=== PATIENT | female | born 1990 | race Hispanic/Latino ===

== ENCOUNTER 2018-12-08 12:15 | Outpatient (CLI) | payer BC, MEDICAID | END 2018-12-08 15:07 | disposition home or self-care (01) | LOC: TRG 12:15 | CPT/HCPCS: 59025 ==

== ENCOUNTER 2018-12-17 14:06 | Outpatient (CLI) | payer BC, MEDICAID ==
[2018-12-17 14:35] VITALS: BP 114/73
--- NOTE | 2018-12-18 07:46 | Ultrasound Report ---
BIOPHYSICAL PROFILE: INDICATION: well being. COMPARISON: None similar. TECHNIQUE: Transabdominal ultrasound with Doppler interrogation. 2 - breathing movements 2 - movements 2 - posture and tone 2 - Qualitative amniotic fluid volume 8 - TOTAL SCORE OF POSSIBLE 8 Heart Rate (bpm) 152 CONCLUSION: Findings, as above.
--- NOTE | 2018-12-18 07:47 | Ultrasound Report ---
OB LIMITED INDICATION: well being. COMPARISON: None similar at this institution. TECHNIQUE: Transabdominal grayscale ultrasound with Doppler interrogation. Gestation: [place] Position: Cephalic Amniotic Fluid: WNL (7-24 cm) KAYLA = 10 cm Heart Rate: 123 BPM CONCLUSION: Findings, as above.
== END 2018-12-17 18:03 | disposition home or self-care (01) ==
LOC: TRG 14:06
PROVIDERS: ATTEND Obstetrics & Gynecology
DX: O47.1 False labor at or after 37 completed weeks of gestation (principal); Z3A.41 41 weeks gestation of pregnancy
CPT/HCPCS: 76815; 76819

== ENCOUNTER 2018-12-21 11:03 | Outpatient (CLI) | payer BC, MEDICAID ==
[2018-12-21 11:55] VITALS: BP 116/79
--- NOTE | 2018-12-21 16:50 | Ultrasound Report ---
PROCEDURE: Ultrasound biophysical profile without nonstress test. TECHNIQUE: Sonographic evaluation for breathing, movement, tone, and amniotic flui d volume was performed. HISTORY: Postdates, evaluate well being . COMPARISONS: None. FINDINGS: FETUS Amniotic fluid volume 2. breathin. movement: 2. tone: 2. Score: 8 of 8. IMPRESSION: Normal biophysical profile. This document is electronically signed by Jorge Blum MD., December 21 2018 04:48:11 PM ET
--- NOTE | 2018-12-21 16:53 | Ultrasound Report ---
PROCEDURE: Limited obstetrical ultrasound. TECHNIQUE: Real-time limited sonographic examination was performed for evaluation of each fetus with image documentation (1 or more fetuses). HISTORY: Post due date, evaluate well being . COMPARISONS: Limited obstetrical ultrasound 12/17/2018. Dictation not available. FINDINGS: There is a single viable fetus in cephalic presentation. Cardiac activity is documented at 156 bpm. T he amniotic fluid volume appears normal. The amniotic fluid index measures 12.3 cm. IMPRESSION: Single viable fetus in cephalic presentation. Normal amniotic fluid index. This document is electronically signed by Jorge Blum MD., December 21 2018 04:51:13 PM ET
== END 2018-12-21 16:19 | disposition home or self-care (01) ==
LOC: TRG 11:03 → LD 11:48 → TRG 16:19
PROVIDERS: ATTEND Obstetrics & Gynecology
DX: O47.1 False labor at or after 37 completed weeks of gestation (principal); Z3A.41 41 weeks gestation of pregnancy
CPT/HCPCS: 76815; 76819

== ENCOUNTER 2018-12-22 16:11 | Inpatient (IN) | payer BC, MEDICAID ==
[2018-12-22] MEDS ORDERED: LACTATED RINGERS 1,000 ML ONE (18:51)
[2018-12-22] MEDS ORDERED: STADOL ONE (18:52)
[2018-12-22] MEDS ORDERED: STADOL IV PRN (18:53)
[2018-12-22] MEDS ORDERED: PHENERGAN PO PRN (18:53)
[2018-12-22] MEDS ORDERED: ZOFRAN IV PRN (18:53)
[2018-12-22] MEDS ORDERED: BRETHINE SUB-Q PRN (18:53)
[2018-12-22] MEDS ORDERED: BRETHINE IVP PRN (18:53)
[2018-12-22] MEDS ORDERED: SUBLIMAZE IV PRN (18:53)
[2018-12-22] MEDS ORDERED: XYLOCAINE 2% INFILTRATI ONE (18:53)
[2018-12-22] MEDS ORDERED: MINERAL OIL PO PRN (18:53)
[2018-12-22] MEDS ORDERED: LACTATED RINGERS 1,000 ML IV SCH (19:00)
[2018-12-22] MEDS ORDERED: PITOCin/NS 30 UNIT/500ML 30 UNITS/500 ML BAG IV SCH ×2 (19:00)
[2018-12-22] MEDS ORDERED: PITOCin/NS 20 UNIT/1000ML DRIP 20 UNITS/1,000 ML BAG IV SCH (19:00)
--- NOTE | 2018-12-22 19:00 | History and Physical Report ---
History of Present Illness Date of examination: 12/22/18 Date of admission: 12/22/18 16:12 Chief complaint: Labor History of present illness: Pt is a 27yo WF EDC 12/13/18; EGA 41 2/7 weeks presents to L&D complaining of RUC's q 3-5 mins. She received late care at [facility] since 27 weeks and course has been unremarkable. records are available and GBS is Negative. Past History Past Medical History: no pertinent history Past Surgical History: other (Cosmetic and Abdominal surgery) Family/Genetic History: hypertension Social history: no significant social history, single - Obstetrical History Expected Date of Delivery: 12/13/18 Actual Gestation: 41 Week(s) 2 Day(s) : 1 Medications and Allergies Allergies Allergy/AdvReac Type Severity Reaction Status Date / Time No Known Allergies Allergy Verified 12/21/18 11:54 Home Medications Medication Instructions Recorded Confirmed Last Taken Type Pnv No.95/Ferrous Fum/Folic AC 1 tab PO DAILY 12/22/18 12/22/18 12/22/18 History [ Formula Tablet] Review of Systems All systems: negative - Vital Signs Vital signs: Vital Signs Pulse Pulse Ox 76 98 12/22/18 16:55 12/22/18 16:55 Temp Pulse Resp BP Pulse Ox 73 125/81 97 12/22/18 17:30 12/22/18 17:20 12/22/18 17:30 - Physical Exam Breasts: Positive: deferred Cardiovascular: Regular rate Lungs: Positive: Clear to auscultation Abdomen: Positive: normal appearance Genitourinary (Female): Positive: normal external genitalia Vagina: Positive: normal moisture Uterus: Positive: enlarged Extremities: Positive: normal - Obstetrical FHR: category 1 Uterine Contraction Monitor Mode: External Cervical Dilatation: 3.5 (per nurse) Cervical Effacement Percentage: 70 (per nurse) station: -2 Results Result Diagrams: 12/22/18 18:32 All other labs normal. Assessment and Plan - Patient Problems (1) 41 weeks gestation of Onset Date: 12/22/18 Current Visit: Yes Status: Acute Plan to address problem: A: IUP @ 41 2/7 weeks in labor P: Admit to L&D for expectant vaginal delivery
[2018-12-22 19:20] LABS: Hematocrit 39.4 % (30.3-42.9); Mean Corpuscular HGB Conc 36 % (30-34); Mean Corpuscular Volume 95 fl (79-97); Platelet Count 159 K/mm3 (140-440); Red Blood Count 4.17 M/mm3 (3.65-5.03); Red Cell Distribution Width 13.6 % (13.2-15.2)
[2018-12-22] MEDS ORDERED: NARCAN 2 MG/2 ML IV PRN (21:03)
[2018-12-22] MEDS ORDERED: fentaNYL-BUPIV 2 MCG/ML-0.125% 200 MCG/100 ML BAG EPIDURAL SCH (22:00)
[2018-12-23] MEDS ORDERED: MARCAINE 0.25% INFILTRATI ONE (04:10)
--- NOTE | 2018-12-23 06:09 | Procedure Note ---
OB Delivery Note - Delivery Date of Delivery: 12/23/18 Surgeon: JACQUELYN SQUIRES Estimated blood loss: other (400ml) - Vaginal Delivery presentation: vertex Delivery position: OP Intrapartum events: PROM->1hr before delivery Delivery induction: oxytocin Delivery augmentation: rupture of membranes, pitocin Delivery monitor: external FHT, external uterine Route of delivery: vacuum extraction Indicators for instrumentation: maternal exhaustion Delivery placenta: spontaneous Delivery cord: 3 umbilical vessels Episiotomy: midline Delivery laceration: 2nd degree (perineal) Delivery repair: vicryl Anesthesia: epidural Delivery comments: Infant delivered OP with the aid of a vacuum - 2 pulls, 1 pop-off, and added to awaiting peds/RT after [id number] bonding and delayed cord clamping, cut by Dad - A at 1 minute: 8 at 5 minutes: 9 Infant Gender: Female (3677gms)
[2018-12-23] MEDS ORDERED: LANSINOH TP PRN (06:10)
[2018-12-23] MEDS ORDERED: MILK OF MAGNESIA PO PRN (06:10)
[2018-12-23] MEDS ORDERED: BENADRYL PO PRN (06:10)
[2018-12-23] MEDS ORDERED: PHENERGAN PO PRN (06:10)
[2018-12-23] MEDS ORDERED: TUCKS PAD TP PRN (06:10)
[2018-12-23] MEDS ORDERED: PHENERGAN PR PRN (06:10)
[2018-12-23] MEDS ORDERED: DULCOLAX PR PRN (06:10)
[2018-12-23] MEDS ORDERED: ZOFRAN IV PRN (06:10)
[2018-12-23] MEDS ORDERED: TYLENOL PO PRN (06:10)
[2018-12-23] MEDS ORDERED: PITOCin/NS 20 UNIT/1000ML DRIP 20 UNITS/1,000 ML BAG IV SCH (07:00)
[2018-12-23] MEDS ORDERED: SODIUM CHLORIDE FLUSH SYRINGE 10 ML IV PRN (07:00)
--- NOTE | 2018-12-23 07:21 | Post Anesthesia Evaluation ---
- Post Anesthesia Evaluation Patient Participated: Yes Airway Patent: Yes Stable Respiratory Function: Yes Nausea/Vomiting: No Temp > 96.8F: Yes Pain Manageable: Yes Adequeate Hydration: Yes Anesthesia Complications: No Block Receding Appropriately: Yes Patient on Ventilator: No
[2018-12-23] MEDS: IBUPROFEN PO SCH ×2 (08:45→16:36)
[2018-12-23] MEDS: NORCO 5/325 PO PRN ×2 (09:35→22:00)
[2018-12-23] MEDS: PRENATAL VITAMIN PO SCH (16:36)
[2018-12-23] MEDS: FEOSOL PO SCH ×2 (16:36→22:00)
[2018-12-23] MEDS: COLACE PO SCH ×2 (16:36→22:00)
[2018-12-23 17:37] LABS: Hematocrit 29.7 % (30.3-42.9); Hemoglobin 10.1 gm/dl (10.1-14.3)
[2018-12-24] MEDS: IBUPROFEN PO SCH ×3 (04:25→11:16)
[2018-12-24] MEDS: NORCO 5/325 PO PRN ×2 (04:29→11:18)
[2018-12-24] MEDS ORDERED: M-M-R II VACCINE SUB-Q ONE (06:10)
[2018-12-24] MEDS: FEOSOL PO SCH (09:54)
[2018-12-24] MEDS: COLACE PO SCH (09:55)
[2018-12-24] MEDS: PRENATAL VITAMIN PO SCH (09:55)
--- NOTE | 2018-12-24 11:15 | Progress Note ---
Assessment and Plan - Patient Problems (1) 41 weeks gestation of Onset Date: 12/22/18 Current Visit: Yes Status: Resolved (2) (normal spontaneous vaginal delivery) Onset Date: 12/24/18 Current Visit: Yes Status: Resolved Plan to address problem: A: S/P - PPD #1 Doing well Asymptomatic anemia - stable P: May go home today. (3) Acute blood loss anemia Onset Date: 12/24/18 Current Visit: Yes Status: Resolved Subjective - Subjective Date of service: 12/24/18 Principal diagnosis: s/p - PPD #1 Doing well Interval history: Pt is feeling well without complaints. Bleeding has improved. Patient reports: appetite normal, voiding normally, pain well controlled, flatus, ambulating normally, no dizzy ambulation, no nauseated [place]: doing well, nursing well Objective - Vital Signs Latest vital signs: Vital Signs Temp Pulse Resp BP Pulse Ox 12/24/18 09:43 98.9 F 68 18 102/51 97 12/24/18 00:00 98.1 F 84 18 94/68 12/23/18 22:00 18 12/23/18 16:49 98.9 F 94 H 18 99/73 98 Intake and Output 12/23/18 12/24/18 12/24/18 22:59 06:59 14:59 Intake Total 840 360 Output Total 1400 Balance -560 360 Intake: Oral 480 Intake, Free Water 360 360 Output: Urine 1400 Void 1400 Other: Total, Intake Amount 480 Total, Output Amount 500 # Voids Void 3 1 - Exam Breasts: Present: deferred Cardiovascular: Present: Regular rate Lungs: Present: Clear to auscultation Abdomen: Present: normal appearance, soft Uterus: Present: normal, firm, fundal height below umbilicus Extremities: Present: normal - Labs Labs: Abnormal lab results 12/23/18 Range/Units 17:22 Hct 29.7 L D (30.3-42.9) % Laboratory Tests 12/22/18 12/22/18 12/22/18 00:15 00:15 18:32 WBC 13.0 H RBC 4.17 Hgb 14.0 Hct 39.4 MCV 95 MCH 34 H MCHC 36 H RDW 13.6 Plt Count 159 RPR Hep Bs Antigen Non-reactive Rubella IgG Antibody Immune Blood Type Antibody Screen Antibody Identification 12/22/18 12/22/18 12/23/18 18:32 18:32 17:22 WBC RBC Hgb 10.1 D Hct 29.7 L D MCV MCH MCHC RDW Plt Count RPR Nonreactive Hep Bs Antigen Rubella IgG Antibody Blood Type O NEGATIVE Antibody Screen Positive Antibody Identification Anti-D (Passively Aquired)
--- NOTE | 2018-12-24 11:17 | Discharge Summary ---
Providers - Providers Date of Admission: 12/22/18 16:12 Date of discharge: 12/24/18 Attending physician: JACQUELYN SQUIRES Primary care physician: JACQUELYN SQUIRES Hospitalization Reason for admission: active labor, IUP at term Delivery: , vacuum extraction Episiotomy: midline Laceration: 2nd degree (perineal) Incision: normal Other procedures: none complications: none Discharge diagnosis: IUP at term delivered [place] baby: female Hospital course: Unremarkable. Condition at discharge: Good Disposition: DC-[id number] TO HOME OR SELFCARE - Discharge Diagnoses (1) 41 weeks gestation of Status: Resolved (2) (normal spontaneous vaginal delivery) Status: Resolved (3) Acute blood loss anemia Status: Resolved Plan - Discharge Medications Prescriptions: Ferrous Sulfate [Feosol 325 MG tab] 325 mg PO BID #60 tablet Ibuprofen [Motrin 600 MG tab] 600 mg PO Q6HR #30 tablet Vit-Fe Fumar-FA [ Vitamin] 1 each PO QDAY #30 tablet - Provider Discharge Summary Activity: routine, no sex for 6 weeks, no heavy lifting 4 weeks, no strenuous exercise Diet: routine Instructions: routine Additional instructions: [] Smoking cessation referral if applicable(refer to patient education folder for contact #) [] Refer to [facility] Book[facility] Call your doctor immediately for: * Fever > 100.5 * Heavy vaginal bleeding ( >1 pad per hour) * Severe persistent headache * Shortness of breath * Reddened, hot, painful area to leg or breast * Drainage or odor from incision. * Keep incision clean and dry at all times and follow doctor's instructions regarding bathing/showering - Follow up plan Follow up: JACQUELYN SQUIRES MD [Primary Care Provider] - 6 Weeks
[2018-12-24 18:38] VITALS: BP 102/67
[2018-12-25] MEDS ORDERED: BOOSTRIX IM ONE (06:00)
== END 2018-12-24 14:15 | disposition home or self-care (01) | DRG 806 ==
LOC: TRG 16:11 → LD 16:12 → TRG 17:32 → OB 12-23 08:07
PROVIDERS: ADMIT Obstetrics & Gynecology; ATTEND Obstetrics & Gynecology
PROC: 10D07Z6 Extraction of Products of Conception, Vacuum, Via Natural or Artificial Opening (ICD-10-PCS; principal; 2018-12-23)
PROC: 0KQM0ZZ Repair Perineum Muscle, Open Approach (ICD-10-PCS; 2018-12-23)
PROC: 3E033VJ Introduction of Other Hormone into Peripheral Vein, Percutaneous Approach (ICD-10-PCS; 2018-12-23)
PROC: 0W8NXZZ Division of Female Perineum, External Approach (ICD-10-PCS; 2018-12-23)
PROC: 3E0R3BZ Introduction of Anesthetic Agent into Spinal Canal, Percutaneous Approach (ICD-10-PCS; 2018-12-23)
PROC: 00HU33Z Insertion of Infusion Device into Spinal Canal, Percutaneous Approach (ICD-10-PCS; 2018-12-23)
PROC: 3E0234Z Introduction of Serum, Toxoid and Vaccine into Muscle, Percutaneous Approach (ICD-10-PCS; 2018-12-24)
DX: O42.92 Full-term premature rupture of membranes, unspecified as to length of time between rupture and onset of labor (principal); D62 Acute posthemorrhagic anemia; Z37.0 Single live birth; O99.02 Anemia complicating childbirth; O75.81 Maternal exhaustion complicating labor and delivery; O70.1 Second degree perineal laceration during delivery; Z3A.41 41 weeks gestation of pregnancy; Z82.49 Family history of ischemic heart disease and other diseases of the circulatory system; Z23 Encounter for immunization
CPT/HCPCS: 36415; 85014; 85018; 85027; 86592; 86706; 86762; 86850; 86870; 86900; 86901; G0378; J0595; J2590; J7120